=== PATIENT | female | born 1990 | race Caucasian/White ===

== ENCOUNTER → 2017-03-17 | Outpatient (CLI) | payer OTHER ==
[~2017-03-17] MED LIST: CLON1TAB3 PO; ETON1IMP2 INTRAD; FLUO10CA24 PO; OMEP20CA9 PO; PRLSR20 PO; QUET-205 PO; TPM/50 PO; VNTHFA/IN INH
[2017-03-17 13:33] LABS: BASO % 0.4 %; BASO ABS # 0.03 K/uL (0-0.2); COMPLETE YES; EOS % 3.3 %; IG% 0.1 %; LYMPH % 22.5 %; LYMPH ABS # 1.76 K/uL (1.2-3.4); MEAN CELL VOLUME 90.9 fL (80-100); MEAN CORPUSCULAR HEMOGLOBIN 30.4 pg (25-34); MEAN CORPUSCULAR HGB CONC 33.4 g/dl (32-36); MEAN PLATELET VOLUME 10.4 fL (7.4-10.4); NEUT % 62.7 %; PLATELET COUNT 383 K/uL (130-400); RED BLOOD COUNT 4.84 M/uL (4.2-5.4); WHITE BLOOD COUNT 7.83 K/uL (4.8-10.8)
[2017-03-17 14:10] LABS: ALT/SGPT 30 U/L (12-78); BLOOD UREA NITROGEN 6 mg/dl (7-18); BUN/CREATININE RATIO 9.8 (10-20); CARBON DIOXIDE 26 mmol/L (21-32); CHLORIDE 106 mmol/L (98-107); CREATININE 0.57 mg/dl (0.60-1.20); GLUCOSE 95 mg/dl (70-99); POTASSIUM 3.5 mmol/L (3.5-5.1); SODIUM 140 mmol/L (136-145)
[2017-03-17 14:14] LABS: CALCIUM 9.7 mg/dl (8.5-10.1)
[2017-03-17 14:20] LABS: ALKALINE PHOSPHATASE 118 U/L (45-117); AST/SGOT 23 U/L (15-37)
[2017-03-17 15:07] LABS: URINE APPEARANCE CLEAR (CLEAR); URINE BILIRUBIN NEG (NEG); URINE COLOR YELLOW; URINE EPITHELIAL CELL AUTO >30 /lpf (0-5); URINE NITRITE NEG (NEG); URINE SPECIFIC GRAVITY 1.018 (1.000-1.030); UROBILINOGEN NEG (NEG)
[2017-03-17 15:08] LABS: MANUAL MICROSCOPIC REQUIRED? NO; REVIEW REQ? NO
== END | disposition home or self-care (01) ==
LOC: C.LABBC 10:01
PROVIDERS: ATTEND Physician Assistant Medical
DX: N91.2 Amenorrhea, unspecified (principal); K21.9 Gastro-esophageal reflux disease without esophagitis; R11.2 Nausea with vomiting, unspecified; R32 Unspecified urinary incontinence; R55 Syncope and collapse

== ENCOUNTER → 2017-03-25 | Outpatient (CLI) | payer OTHER ==
[2017-03-25 14:09] LABS: URINE APPEARANCE CLOUDY (CLEAR); URINE BILIRUBIN NEG (NEG); URINE COLOR DK YELLOW; URINE EPITHELIAL CELL AUTO >30 /lpf (0-5); URINE NITRITE NEG (NEG); URINE SPECIFIC GRAVITY 1.031 (1.000-1.030); UROBILINOGEN NEG (NEG)
[2017-03-25 14:19] LABS: MANUAL MICROSCOPIC REQUIRED? NO; REVIEW REQ? YES
[2017-03-25 14:56] LABS: URINE MUCUS PRESENT (NONE PRSENT)
== END | disposition home or self-care (01) ==
LOC: C.LABBC 10:50
PROVIDERS: ATTEND Physician Assistant Medical
DX: R10.9 Unspecified abdominal pain (principal); R32 Unspecified urinary incontinence

== ENCOUNTER → 2017-03-31 | Outpatient (CLI) | payer OTHER ==
--- NOTE | 2017-04-01 12:59 | EEG Procedure Note ---
EEG Procedure Note Date of Service March 31, 2017. Start / End Times Start Time: 1:15 PM End Time: 1:36 PM Referring Physician PAMELLA Lai History This is a 26-year-old female with syncope. EEG for further evaluation of possible seizure etiology. Home Medication List Scheduled Etonogestrel (Nexplanon), 68 MG INTRAD CONTINOUS Omeprazole (Prilosec), 20 MG PO QAM Quetiapine Fumarate (Seroquel), 200 MG PO HS Description This is a 21 electrode EEG with a single channel dedicated to limited EKG. The electrodes were placed in accordance with the International 10-20 system. There was noted to be intermittent 01 and C4 artifact that was sometimes rhythmic and frequent movement artifact during the recording of this EEG. At the start of the recording the patient was in an awake state. Background was well organized and composed of symmetric mixed alpha and excess beta frequencies. There was a symmetric well-formed moderate amplitude 10 Hz posterior dominant rhythm that was reactive to eye opening and closure. Patient could not perform hyperventilation. Intermittent photic stimulation at various frequencies produced no abnormalities. There was no state changes or sleep transients. Interpretation This is a normal awake only routine EEG. There was no electrographic seizures or epileptiform discharges. Clinical Correlation A normal EEG does not rule out epilepsy if there is a strong clinical suspicion. Excess beta frequencies in the background can be seen with the use of certain medications.
== END | disposition home or self-care (01) ==
LOC: C.NEUR 13:05
PROVIDERS: ATTEND Physician Assistant Medical
DX: K21.9 Gastro-esophageal reflux disease without esophagitis (principal); N91.2 Amenorrhea, unspecified; R11.2 Nausea with vomiting, unspecified; R55 Syncope and collapse; R32 Unspecified urinary incontinence

== ENCOUNTER → 2017-04-11 | Outpatient (CLI) | payer OTHER ==
[2017-04-11 17:00] LABS: BASO % 0.2 %; BASO ABS # 0.02 K/uL (0-0.2); COMPLETE YES; EOS % 1.2 %; HEMATOCRIT 43.4 % (37-47); IG% 0.1 %; LYMPH % 35.6 %; LYMPH ABS # 3.42 K/uL (1.2-3.4); MEAN CORPUSCULAR HEMOGLOBIN 30.2 pg (25-34); MEAN CORPUSCULAR HGB CONC 33.2 g/dl (32-36); MEAN PLATELET VOLUME 10.8 fL (7.4-10.4); MONO % 7.2 %; NEUT % 55.7 %; PLATELET COUNT 357 K/uL (130-400); RED BLOOD COUNT 4.77 M/uL (4.2-5.4); WHITE BLOOD COUNT 9.61 K/uL (4.8-10.8)
[2017-04-11 17:05] LABS: PREG INTERNAL NEGATIVE QC NEG CLEAR BACKGROUND; PREG INTERNAL POSITIVE QC POS CONTROL LINE; URINE APPEARANCE TURBID (CLEAR); URINE BILIRUBIN NEG (NEG); URINE COLOR YELLOW; URINE EPITHELIAL CELL AUTO >30 /lpf (0-5); URINE NITRITE NEG (NEG); URINE SPECIFIC GRAVITY 1.021 (1.000-1.030); UROBILINOGEN NEG (NEG)
[2017-04-11 17:07] LABS: MANUAL MICROSCOPIC REQUIRED? NO; REVIEW REQ? NO
[2017-04-11 17:21] LABS: ALT/SGPT 19 U/L (12-78); AST/SGOT 11 U/L (15-37); BLOOD UREA NITROGEN 8 mg/dl (7-18); BUN/CREATININE RATIO 13.9 (10-20); CALCIUM 9.2 mg/dl (8.5-10.1); CARBON DIOXIDE 26 mmol/L (21-32); CHLORIDE 109 mmol/L (98-107); CREATININE 0.61 mg/dl (0.60-1.20); GLUCOSE 79 mg/dl (70-99); POTASSIUM 3.6 mmol/L (3.5-5.1); SODIUM 142 mmol/L (136-145)
[2017-04-11 17:34] LABS: BENZODIAZEPINE, URINE NEG (NEG); COCAINE,URINE NEG (NEG); PHENCYCLIDINE, URINE NEG (NEG)
[2017-04-11 17:35] LABS: ALKALINE PHOSPHATASE 104 U/L (45-117)
== END | disposition home or self-care (01) ==
LOC: C.LABBC 14:20
PROVIDERS: ATTEND Psychiatry & Neurology Psychiatry
DX: F31.9 Bipolar disorder, unspecified (principal)

== ENCOUNTER → 2017-04-22 | Outpatient (CLI) | payer OTHER ==
--- NOTE | 2017-04-22 14:27 | DIAGNOSTIC IMAGING REPORT ---
CHEST 2 VIEWS ROUTINE CLINICAL HISTORY: R05 Cough" black sputum" x>5 [id number] dyspnea COMPARISON STUDY: No previous studies for comparison. FINDINGS: The bones soft tissues and hemidiaphragms are normal. The cardiomediastinal silhouette is normal. The lungs are clear. The pulmonary vasculature is normal. IMPRESSION: Negative chest. Electronically signed by: Rohit Almazan M.D. 04/22/2017 2:26 PM Dictated Date/Time: 04/22/2017 2:25 PM
== END | disposition home or self-care (01) ==
LOC: C.RAD1850 13:44
PROVIDERS: ATTEND Physician Assistant Medical
DX: R05 Cough (principal)

== ENCOUNTER → 2017-04-29 | Outpatient (CLI) | payer OTHER | END | disposition home or self-care (01) | LOC: C.LAB1850 09:21 | PROVIDERS: ATTEND Physician Assistant Medical | DX: R05 Cough (principal) ==

== ENCOUNTER → 2017-05-12 | Outpatient (CLI) | payer OTHER ==
--- NOTE | 2017-05-12 09:10 | DIAGNOSTIC IMAGING REPORT ---
GI SERIES W/AIR ROUTINE CLINICAL HISTORY: ABDOMINAL CAI, GERD, HERNIA, NAUSEA VOMITING COMPARISON STUDY: None. FLUOROSCOPY TIME: 1.7 minutes. 22 images submitted.. FINDINGS: The patient swallowed barium without difficulty. The esophagus is normal in course, caliber, and motility. No gastroesophageal reflux. No gastric ulcerations. The duodenal bulb and duodenal C sweep are within normal limits. Prior cholecystectomy. There appear to be a tiny hiatus hernia. IMPRESSION: 1. Tiny hiatus hernia. 2. No gastroesophageal reflux. Electronically signed by: Brain Vargas M.D. 05/12/2017 9:09 AM Dictated Date/Time: 05/12/2017 9:04 AM
== END | disposition home or self-care (01) ==
LOC: C.RAD 08:18
PROVIDERS: ATTEND Registered Nurse
DX: K21.9 Gastro-esophageal reflux disease without esophagitis (principal); K44.9 Diaphragmatic hernia without obstruction or gangrene; R11.2 Nausea with vomiting, unspecified; R10.9 Unspecified abdominal pain

== ENCOUNTER → 2017-05-30 | Outpatient (CLI) | payer OTHER | END | disposition home or self-care (01) | LOC: C.LABSPEC 17:08 | PROVIDERS: ATTEND Nurse Practitioner Adult Health | DX: N94.10 Unspecified dyspareunia (principal) ==

== ENCOUNTER 2017-06-29 14:49 | Inpatient (IN) | payer OTHER ==
[~2017-06-29] VITALS: Ht 154.9 cm; Wt 65.8 kg
[~2017-06-29 14:49] MED LIST changes: -CLON1TAB3 PO; -FLUO10CA24 PO; -OMEP20CA9 PO; -TPM/50 PO; -VNTHFA/IN INH
[2017-06-29] MEDS ORDERED: OMEP20CA9 PO (15:24)
[2017-06-29] MEDS ORDERED: CLON1TAB3 PO (15:24)
[2017-06-29] MEDS ORDERED: TPM/50 PO (15:24)
[2017-06-29] MEDS ORDERED: FLUO10CA24 PO (15:24)
[2017-06-29] MEDS ORDERED: VNTHFA/IN INH (15:24)
[2017-06-29] MEDS ORDERED: SODIUM CHLORIDE 0.9% 1000ML 1,000 ML IV STA ×2 (15:31)
[2017-06-29] MEDS ORDERED: ALBUT/IPRATROP 3MG/0.5MG NEB 3 ML VIAL INH STA (15:31)
[2017-06-29 16:06] LABS: URINE APPEARANCE TURBID (CLEAR); URINE COLOR DK YELLOW; URINE EPITHELIAL CELL AUTO >30 /lpf (0-5); URINE NITRITE NEG (NEG); URINE SPECIFIC GRAVITY 1.033 (1.000-1.030); UROBILINOGEN NEG (NEG)
[2017-06-29 16:14] LABS: MANUAL MICROSCOPIC REQUIRED? NO; REVIEW REQ? YES
[2017-06-29 16:15] LABS: URINE BILIRUBIN NEG (NEG)
--- NOTE | 2017-06-29 16:34 | DIAGNOSTIC IMAGING REPORT ---
CHEST 2 VIEWS ROUTINE CLINICAL HISTORY: SHORTNESS OF BREATH dyspnea COMPARISON STUDY: 04/22/2017 FINDINGS: The bones soft tissues and hemidiaphragms are normal. The cardiomediastinal silhouette is normal. The lungs are clear. The pulmonary vasculature is normal. IMPRESSION: Negative chest. The above report was generated using voice recognition software. It may contain grammatical, syntax or spelling errors. Electronically signed by: Rohit Almazan M.D. 06/29/2017 4:33 PM Dictated Date/Time: 06/29/2017 4:33 PM
[2017-06-29 16:35] LABS: BENZODIAZEPINE, URINE NEG (NEG); COCAINE,URINE NEG (NEG); PHENCYCLIDINE, URINE NEG (NEG)
[2017-06-29 16:45] LABS: BASO % 0.2 %; BASO ABS # 0.02 K/uL (0-0.2); COMPLETE YES; EOS % 0.6 %; HEMATOCRIT 44.9 % (37-47); IG% 0.2 %; LYMPH ABS # 3.87 K/uL (1.2-3.4); MEAN CELL VOLUME 87.9 fL (80-100); MEAN CORPUSCULAR HEMOGLOBIN 30.5 pg (25-34); MEAN CORPUSCULAR HGB CONC 34.7 g/dl (32-36); MONO % 8.8 %; NEUT % 46.2 %; PLATELET COUNT 321 K/uL (130-400); RED BLOOD COUNT 5.11 M/uL (4.2-5.4); WHITE BLOOD COUNT 8.79 K/uL (4.8-10.8)
[2017-06-29 16:47] LABS: URINE MUCUS PRESENT (NONE PRSENT)
[2017-06-29 16:54] LABS: PARTIAL THROMBOPLASTIN RATIO 1.1; PROTHROMBIN TIME (PATIENT) 11.1 SECONDS (9.0-12.0)
[2017-06-29 17:02] LABS: BLOOD UREA NITROGEN 10 mg/dl (7-18); BUN/CREATININE RATIO 15.6 (10-20); CALCIUM 9.4 mg/dl (8.5-10.1); CARBON DIOXIDE 19 mmol/L (21-32); CHLORIDE 109 mmol/L (98-107); CREATININE 0.61 mg/dl (0.60-1.20); GLUCOSE 79 mg/dl (70-99); MAGNESIUM 1.6 mg/dl (1.8-2.4); POTASSIUM 2.6 mmol/L (3.5-5.1); SODIUM 140 mmol/L (136-145)
[2017-06-29] MEDS ORDERED: POTASSIUM CHLORIDE 10 MEQ TABCR PO STA (17:07)
[2017-06-29 17:13] LABS: ALKALINE PHOSPHATASE 102 U/L (45-117); ALT/SGPT 23 U/L (12-78); AST/SGOT 15 U/L (15-37)
[2017-06-29] MEDS ORDERED: MAGNESIUM OXIDE 400 MG TAB PO ONE (17:30)
--- NOTE | 2017-06-29 18:39 | EMERGENCY ROOM VISIT NOTE ---
History First contact with patient: 15:11 Chief Complaint: SHORTNESS OF BREATH Stated Complaint: SOB Nursing Triage Summary: Pt reports sob and chest pain since last night. 40 lbs weight loss since April. "I've been passing out randomly. 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 There is something really wrong." History of Present Illness Patient is a 26-year-old white female with past medical history significant for "cystic lung disease" who presents to the emergency department for evaluation of chest pain and shortness of breath. She reports that she was diagnosed with cystic lung disease several years ago. She is on albuterol and Symbicort, and is followed by pulmonology. She has had progressively worsening shortness of breath over the last several months. She states that she becomes so short of breath that she cannot perform even simple routine activities any longer. She has a cough that is productive of sputum. She relates yesterday she developed midsternal chest tightness/pressure, and fell more short of breath than usual. She used her albuterol inhaler 3 times today without relief, tried taking a cold shower and sitting in an air conditioned room. She called her community relations representative who recommended that she come to the emergency department for further care and evaluation. She reports feeling some palpitations with her shortness of breath. She denies any fever. She is not on any antibiotics or oral steroids recently. She also reports she is being followed by neurology and GI for spinal other issues that have been present again for the last several months. She has had problems with passing out and insomnia and is seen at neurology. She has been prescribed multiple different sleep medications without relief. She has had nausea, vomiting, and anorexia, and has been seen by GI. She reports she has lost 40 pounds in the last 3-4 months, unintentionally. She has chronic urinary incontinence. She denies frequency, urgency or dysuria. She reports decreased bowel movements secondary to decreased oral intake, no diarrhea, melena or hematochezia. She does report easy bruising in her legs. She denies any calf or leg pain or swelling. She reports she is scheduled for a Holter monitor and on July 06. Review of Systems Review of systems as per HPI. All other systems reviewed were negative. 10 systems reviewed. Past Medical/Surgical History Medical Problems: (1) Abdominal pain (2) Altered mental status (3) Anxiety State Nos (4) Bladder infection (5) C. difficile colitis (6) Cholelithiasis (7) Cystic-bullous disease of lung (8) Dehydration (9) Dental abscess (10) Depressive Disorder Nec (11) Diarrhea (12) Dysfunctional uterine bleeding (13) Dysuria (14) Epigastric pain (15) Esophageal Reflux (16) Headache (17) Herpes genitalis (18) Hypokalemia (19) Hypothyroidism Nos (20) IBS (irritable bowel syndrome) (21) Intractable abdominal pain (22) LLQ abdominal pain (23) LLQ abdominal pain (24) Nausea & vomiting (25) Nausea and vomiting (26) Nausea vomiting and diarrhea (27) Nausea, vomiting and diarrhea (28) Pneumonia (29) Possible exposure to STD (30) Shortness of breath (31) Sinusitis (32) Sinusitis (33) Substance abuse (34) Syncope (35) UTI (urinary tract infection) (36) Viral URI (37) Vomiting Surgical Problems: (1) Cholecystectomy (2) H/O dilation and curettage Electronic medical records are reviewed and summarized as above/below. See Problem List. Family History Cancer Diabetes mellitus Heart disease Social History Smoking Status: Never Smoker Alcohol Use: none Drug Use: other Marital Status: single Housing Status: lives alone Occupation Status: unemployed Current/Historical Medications Scheduled Clonazepam (Klonopin), 1 MG PO TID Fluoxetine HCl (Fluoxetine HCl), 10 MG PO DAILY Omeprazole (Prilosec), 20 MG PO AMPM Topiramate (Topamax), 50 MG PO BID Scheduled PRN Albuterol Hfa (Ventolin Hfa), 2 PUFF INH Q4H PRN for Shortness of Breath Physical Exam Vital Signs Date Time Temp Pulse Resp B/P (MAP) Pulse Ox O2 Delivery O2 Flow Rate FiO2 06/29/17 16:59 91 Room Air 06/29/17 16:48 06/29/17 16:47 84 18 103/68 98 Room Air 77 106/71 82 105/86 06/29/17 16:10 86 17 100 Room Air 06/29/17 16:09 76 06/29/17 16:03 81 37 108/56 100 Room Air 06/29/17 14:53 36.5 99 18 124/89 99 Room Air Physical Exam CONSTITUTIONAL: Patient is a well-appearing 26-year-old white female who is awake and alert and in no acute distress. Oxygen saturation is 100% on room air , respiratory rate 18 and unlabored, heart rate is 79 beats per minute. [place] She is able to speak in full sentences without difficulty. EYES: Pupils equal, round, reactive to light and accommodation. EOMs intact without nystagmus. Sclera are anicteric. ENT: Tympanic membranes intact, with normal landmarks. External canals are clear. Oral and nasopharynx are clear. Mucous membranes are moist, no lesions , tongue and gums appear normal. NECK: No bruits auscultated. Supple without lymphadenopathy. No thyromegaly. No meningeal signs. Full active range of motion without discomfort. No stridor. CARDIOVASCULAR: Regular rate and rhythm, with normal S1 and S2, no murmur or gallop or rub is heard. No carotid bruits auscultated. No JVD. Peripheral pulses easy to palpable. RESPIRATORY: Breath sounds equal and clear to auscultation without wheezes, rales, or rhonchi heard. Full and equal chest expansion without accessory muscle use or retractions. GI: Bowel sounds are present. Abdomen is soft, nontender, nondistended. No organomegaly. No pulsatile masses. No guarding or rebound. MUSCULOSKELETAL: Full range of motion of extremities x 4 with good strength. No cyanosis, edema, joint tenderness or swelling. No deformity. INTEGUMENTARY: No lesions or rash, normal skin turgor. NEUROLOGICAL: Alert, oriented, and cooperative. Cranial nerves, sensation and strength grossly intact. Pupils round, equal, and react to light, EOMs are full. LYMPH: No lymphadenopathy. Medical Decision & Procedures ER Provider Diagnostic Interpretation: CHEST 2 VIEWS ROUTINE CLINICAL HISTORY: SHORTNESS OF BREATH dyspnea COMPARISON STUDY: 04/22/2017 FINDINGS: The bones soft tissues and hemidiaphragms are normal. The cardiomediastinal silhouette is normal. The lungs are clear. The pulmonary vasculature is normal. IMPRESSION: Negative chest. Laboratory Results 06/29/17 16:34 Red Blood Count 5.11, Mean Corpuscular Volume 87.9, Mean Corpuscular Hemoglobin 30.5, Mean Corpuscular Hemoglobin Concent 34.7, Mean Platelet Volume 10.0, Neutrophils (%) (Auto) 46.2, Lymphocytes (%) (Auto) 44.0, Monocytes (%) (Auto) 8.8, Eosinophils (%) (Auto) 0.6, Basophils (%) (Auto) 0.2, Neutrophils # (Auto) 4.06, Lymphocytes # (Auto) 3.87, Monocytes # (Auto) 0.77, Eosinophils # (Auto) 0.05, Basophils # (Auto) 0.02 06/29/17 16:34 Test 06/29/17 15:45 06/29/17 16:34 06/29/17 16:42 Urine Color DK YELLOW Urine Appearance TURBID (CLEAR) Urine pH 6.0 (4.5-7.5) Urine Specific Ada 1.033 (1.000-1.030) Urine Protein 1+ (NEG) Urine Glucose (UA) NEG (NEG) Urine Ketones 4+ (NEG) Urine Occult Blood NEG (NEG) Urine Nitrite NEG (NEG) Urine Bilirubin NEG (NEG) Urine Urobilinogen NEG (NEG) Urine Leukocyte Esterase TRACE (NEG) Urine WBC (Auto) 5-10 /hpf (0-5) Urine RBC (Auto) 0-4 /hpf (0-4) Urine Hyaline Casts (Auto) 0 /lpf (0-5) Urine Epithelial Cells (Auto) >30 /lpf (0-5) Urine Bacteria (Auto) 2+ (NEG) Urine Renal Epithelial Cells /lpf (0-5) Urine Crystals CALCIUM OXALATE (NONE Urine Pathogenic Casts /lpf (0) Urine Mucus PRESENT (NONE PRSENT) Urine Test NEG (NEG) Urine Opiates Screen NEG (NEG) Urine Methadone, Qualitative NEG (NEG) Urine Barbiturates NEG (NEG) Urine Phencyclidine (PCP) Level NEG (NEG) Ur Amphetamine/Methamphetamine NEG (NEG) MDMA (Ecstasy) Screen NEG (NEG) Urine Benzodiazepines Screen NEG (NEG) Urine Cocaine Metabolite NEG (NEG) Urine Marijuana (THC) NEG (NEG) White Blood Count 8.79 K/uL (4.8-10.8) Red Blood Count 5.11 M/uL (4.2-5.4) Hemoglobin 15.6 g/dL (12.0-16.0) Hematocrit 44.9 % (37-47) Mean Corpuscular Volume 87.9 fL (80-100) Mean Corpuscular Hemoglobin 30.5 pg (25-34) Mean Corpuscular Hemoglobin Concent 34.7 g/dl (32-36) Platelet Count 321 K/uL (130-400) Mean Platelet Volume 10.0 fL (7.4-10.4) Neutrophils (%) (Auto) 46.2 % Lymphocytes (%) (Auto) 44.0 % Monocytes (%) (Auto) 8.8 % Eosinophils (%) (Auto) 0.6 % Basophils (%) (Auto) 0.2 % Neutrophils # (Auto) 4.06 K/uL (1.4-6.5) Lymphocytes # (Auto) 3.87 K/uL (1.2-3.4) Monocytes # (Auto) 0.77 K/uL (0.11-0.59) Eosinophils # (Auto) 0.05 K/uL (0-0.5) Basophils # (Auto) 0.02 K/uL (0-0.2) RDW Standard Deviation 47.3 fL (36.4-46.3) RDW Coefficient of Variation 14.7 % (11.5-14.5) Immature Granulocyte % (Auto) 0.2 % Immature Granulocyte # (Auto) 0.02 K/uL (0.00-0.02) Prothrombin Time 11.1 SECONDS (9.0-12.0) Prothromb Time International Ratio 1.0 (0.9-1.1) Activated Partial Thromboplast Time 29.2 SECONDS (21.0-31.0) Partial Thromboplastin Ratio 1.1 Anion Gap 12.0 mmol/L (3-11) Est Creatinine Clear Calc Drug Dose 118.0 ml/min Estimated GFR () 143.0 Estimated GFR (Non- 123.4 BUN/Creatinine Ratio 15.6 (10-20) Calcium Level 9.4 mg/dl (8.5-10.1) Magnesium Level 1.6 mg/dl (1.8-2.4) Total Bilirubin 0.8 mg/dl (0.2-1) Aspartate Amino Transf (AST/SGOT) 15 U/L (15-37) Alanine Aminotransferase (ALT/SGPT) 23 U/L (12-78) Alkaline Phosphatase 102 U/L (45-117) Total Creatine Kinase 40 U/L (26-192) Creatine Kinase MB < 0.5 ng/ml (0.5-3.6) Creatine Kinase MB Ratio (0-3.0) Troponin I < 0.015 ng/ml (0-0.045) Total Protein 8.4 gm/dl (6.4-8.2) Albumin 4.3 gm/dl (3.4-5.0) Globulin 4.1 gm/dl (2.5-4.0) Albumin/Globulin Ratio 1.0 (0.9-2) Lipase 147 U/L (73-393) Thyroid Stimulating Hormone (TSH) 3.110 uIu/ml (0.300-4.500) Bedside D-Dimer 245 ng/mlFEU (0-450) Medications Administered Medications (Trade) Dose Ordered Sig/Melissa Route Start Time Stop Time Status Last Admin Dose Admin Sodium Chloride 1,000 ml @ 999 mls/hr Q1H1M STAT IV 06/29/17 15:31 06/29/17 16:31 DC 06/29/17 16:50 999 MLS/HR Sodium Chloride 1,000 ml @ 250 mls/hr Q4H STAT IV 06/29/17 15:31 06/29/17 19:30 DC 06/29/17 16:50 250 MLS/HR Albuterol/ Ipratropium (Duoneb) 3 ml NOW STAT INH 06/29/17 15:31 06/29/17 15:34 DC 06/29/17 15:51 3 ML Potassium Chloride (Klor-Con M10) 40 meq NOW STAT PO 06/29/17 17:07 06/29/17 17:08 DC 06/29/17 17:13 40 MEQ Magnesium Oxide (Mag-Ox Tab) 400 mg NOW ONCE PO 06/29/17 17:30 06/29/17 17:31 DC 06/29/17 17:30 400 MG ECG Indication: chest pain, SOB/dyspnea Rate (beats per minute): 78 Rhythm: normal sinus Findings: no acute ischemic change, no ectopy Change: no significant change ED Course The patient was seen and evaluated as above. Her old records were reviewed, including her recent outpatient laboratory and diagnostic imaging studies. She was placed on a electronic device monitor, IV access was obtained and laboratory studies were collected. She was given a DuoNeb treatment, during which she complained of cramping and spasms in her hands and numbness in her legs. Orthostatic vital signs were normal. She was hydrated with normal saline solution. She was ambulated, and pulse ox was assessed and was 91% with ambulation. CBC with differential, coags, magnesium, CMP, lipase, CK, CK-MB, troponin, TSH and point- of-care d-dimer were collected. Chest x-ray was obtained and was unremarkable. Laboratory studies noted a normal white count at 8700, no left shift or bandemia. H&H 15.6 and 44.9, platelets 321,000. Coags are within normal limits. D-dimer was not elevated, therefore further workup for PE was not pursued. Patient's electrolytes revealed a sodium of 140, she is hypokalemic with potassium of 2.6, chloride 109, carbon dioxide 19, BUN 10 and creatinine 0.61. Magnesium also slightly low at 1.6. Liver functions are not elevated. Cardiac enzymes are negative. TSH is indicative of a euthyroid state. Urinalysis notes 4+ ketones trace esterase, 5-10 WBCs, 2+ bacteria, calcium oxalate crystals and greater than 30 epithelial cells. Urine culture was ordered and is pending. Patient refused IV potassium was given 40 mEq orally. She was given magnesium oxide 400 mg orally as well. She was given a soft diet. Patient was reviewed with the manager product management. Given her hypokalemia, in addition to her multiple other medical problems including her shortness of breath, syncope, anorexia and weight loss with nausea and vomiting, it was felt that she would benefit from admission/observation in the hospital. The patient was reviewed with the [facility] Hospitalist for further care and evaluation. Differential diagnoses entertained included arrhythmia, acute coronary syndrome , orthostasis, dehydration, electrolyte abnormalities, anemia, hypoglycemia, acute myocardial infarction, myocarditis, pericarditis, pericardial effusions/ tamponade, pulmonary embolism, pneumonia, pneumothorax, cardiomyopathy, congestive heart failure, anemia , COPD/asthma exacerbation, musculoskeletal, anxiety, costochondritis, among others. Medical Decision See Emergency Department course. Medication Reconcilliation Current Medication List: was personally reviewed by me Blood Pressure Screening Patient's blood pressure: Normal blood pressure Blood pressure disposition: Did not require urgent referral Impression Primary Impression: Hypokalemia Additional Impression: Shortness of breath Departure Information Dispostion Being Evaluated By Hospitalist Referrals No Doctor, Assigned (PCP) Patient Instructions My [facility] Problem Qualifiers
[2017-06-29] MEDS ORDERED: MAGNESIUM SULFATE 1GM / D5W 1 GM in PREMIXED IN D5W 100 ML IV STA (18:43)
[2017-06-29] MEDS ORDERED: ACETAMINOPHEN 325 MG TAB PO PRN (18:45)
[2017-06-29] MEDS ORDERED: ALBUTEROL 0.5% NEB SOLN 2.5 MG/0.5 ML VIAL INH PRN (18:45)
[2017-06-29] MEDS ORDERED: ALBUTEROL HFA 8 GM INHALER INH PRN (18:45)
[2017-06-29] MEDS ORDERED: ZOLPIDEM TARTRATE 5 MG TAB PO PRN (18:45)
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
[2017-06-29] MEDS: NSS + 20MEQ KCL 1000ML 1,000 ML IV SCH (21:01)
[2017-06-29] MEDS: TOPIRAMATE 25 MG TAB PO SCH (21:01)
[2017-06-29] MEDS: CLONAZEPAM 1 MG TAB PO SCH (21:02)
[2017-06-29 22:16] VITALS: BP 100/63; PULSE 93; TEMP 36.7; O2SAT 100; Ht 154.9 cm; Wt 65.8 kg
[2017-06-29 23:59] VITALS: BP 107/68; PULSE 93; TEMP 37; O2SAT 99
[2017-06-30 04:00] VITALS: BP 107/64; PULSE 77; TEMP 36.9; O2SAT 99
[2017-06-30] MEDS: NSS + 20MEQ KCL 1000ML 1,000 ML IV SCH ×2 (04:47→11:20)
[2017-06-30 07:30] VITALS: O2SAT 100
[2017-06-30] MEDS: TOPIRAMATE 25 MG TAB PO SCH (07:39)
[2017-06-30] MEDS: CLONAZEPAM 1 MG TAB PO SCH ×2 (07:41→13:56)
[2017-06-30 08:00] VITALS: BP 112/76; PULSE 92; TEMP 36.7; O2SAT 100
[2017-06-30] MEDS ORDERED: FLUOXETINE HCL 10 MG CAP PO SCH (09:00)
[2017-06-30] MEDS ORDERED: PANTOprazole SOD 40 MG TAB PO SCH (09:00)
[2017-06-30 09:18] LABS: BLOOD UREA NITROGEN 4 mg/dl (7-18); BUN/CREATININE RATIO 10.5 (10-20); CALCIUM 8.2 mg/dl (8.5-10.1); CARBON DIOXIDE 18 mmol/L (21-32); CHLORIDE 116 mmol/L (98-107); CREATININE 0.39 mg/dl (0.60-1.20); GLUCOSE 91 mg/dl (70-99); MAGNESIUM 1.9 mg/dl (1.8-2.4); POTASSIUM 3.6 mmol/L (3.5-5.1); SODIUM 143 mmol/L (136-145)
[2017-06-30 12:00] VITALS: O2SAT 100
[2017-06-30] MEDS ORDERED: TEMAZEPAM 7.5 MG CAP PO PRN (15:00)
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
[2017-06-30] MEDS ORDERED: NURSING VERBAL MED ORDER ONE ×2 (15:30→15:45)
[2017-06-30] MEDS ORDERED: ONDANSETRON INJ 2 MG/ML 2 ML VIAL IV STA (15:35)
[2017-06-30] MEDS ORDERED: ONDANSETRON INJ 2 MG/ML 2 ML VIAL IV PRN (15:45)
[2017-06-30] MEDS ORDERED: ALBUTEROL HFA 8 GM INHALER INH PRN (15:45)
[2017-06-30] MEDS ORDERED: BUDESONIDE/FORMOTEROL FUMARATE 80/4.5 60 PUFFS/INHALER INH SCH (16:00)
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
--- NOTE | 2017-07-05 08:04 | Psychiatric Consultation ---
Psychiatric Consultation Date of Service: Jul 05, 2017. patient eloped from hospital before liaison could initiate first contact, hence patient was unable to be seen by psychiatric provider.
== END 2017-06-30 16:10 | disposition left against medical advice (07) | DRG 204 ==
LOC: C.EDB 14:51 → C.2T 18:38 → ENRESERV 19:12 → C.MSICU 19:49
PROVIDERS: ADMIT Hospitalist; ATTEND Hospitalist
DX: R06.02 Shortness of breath (principal); E46 Unspecified protein-calorie malnutrition; J98.4 Other disorders of lung; J43.9 Emphysema, unspecified; E87.6 Hypokalemia; K58.9 Irritable bowel syndrome, unspecified; R32 Unspecified urinary incontinence; E83.42 Hypomagnesemia; F43.10 Post-traumatic stress disorder, unspecified; E03.9 Hypothyroidism, unspecified; F32.9 Major depressive disorder, single episode, unspecified; R11.2 Nausea with vomiting, unspecified

== ENCOUNTER → 2017-07-06 | Outpatient (CLI) | payer OTHER ==
[~2017-07-06] MED LIST changes: +CLON1TAB3 PO; -ETON1IMP2 INTRAD; +FLUO10CA24 PO; +OMEP20CA9 PO; -PRLSR20 PO; -QUET-205 PO; +TPM/50 PO; +VNTHFA/IN INH
[2017-07-06 12:18] LABS: BASO % 0.4 %; BASO ABS # 0.02 K/uL (0-0.2); COMPLETE YES; EOS % 1.6 %; HEMATOCRIT 39.3 % (37-47); LYMPH % 39.1 %; LYMPH ABS # 2.22 K/uL (1.2-3.4); MEAN CELL VOLUME 89.3 fL (80-100); MEAN CORPUSCULAR HEMOGLOBIN 30.9 pg (25-34); MEAN CORPUSCULAR HGB CONC 34.6 g/dl (32-36); MEAN PLATELET VOLUME 11.2 fL (7.4-10.4); MONO % 11.8 %; NEUT % 47.1 %; PLATELET COUNT 305 K/uL (130-400); WHITE BLOOD COUNT 5.68 K/uL (4.8-10.8)
[2017-07-06 12:25] LABS: ESTIMATED AVERAGE GLUCOSE 108 mg/dl; HA1C FLAG Normal (Normal)
[2017-07-06 12:37] LABS: ALT/SGPT 27 U/L (12-78); AST/SGOT 12 U/L (15-37); BLOOD UREA NITROGEN 11 mg/dl (7-18); CALCIUM 8.8 mg/dl (8.5-10.1); CARBON DIOXIDE 20 mmol/L (21-32); CHLORIDE 110 mmol/L (98-107); CREATININE 0.44 mg/dl (0.60-1.20); GLUCOSE 84 mg/dl (70-99); POTASSIUM 2.9 mmol/L (3.5-5.1); SODIUM 141 mmol/L (136-145)
[2017-07-06 12:48] LABS: ALB/GLOB RATIO 1.2 (0.9-2); ALKALINE PHOSPHATASE 89 U/L (45-117)
[2017-07-06 13:53] LABS: LYME DISEASE AB IGG NEG (NEG); LYME DISEASE AB IGM NEG (NEG)
[2017-07-10 18:30] LABS: COLLECTION SAMPLE Venous; LEAD BLOOD <1 mcg/dL (<5); METHYLMALONIC ACID 52 NMOL/L (87-318); VIT B1 PLASMA(THIAMIN)**90353 <7 nmol/L (8-30); VITAMIN B6** TC 926 71.5 ng/mL (2.1-21.7)
--- NOTE | 2017-07-12 10:50 | CODING QUERY MEDICAL NECESSITY ---
CQSUPPORTING DIAGNOSIS NEEDED A supporting diagnosis is required for the test/procedure performed on this patient in order for us to be reimbursed by the patient's insurance. Please provide a supporting diagnosis for the following test/procedure listed below next to the test name along with your signature. *If there is no additional diagnosis for this patient that would support the following test/procedure please document that below next to the test/procedure. Test(s)/Procedure(s) that require a supporting diagnosis: DOS 07/06/17 GLYCATED HEMOGLOBIN TEST TEST ORDERED BY PAMELLA AGOSTO Provider Signature: Date: Thank you Maryam Kingsley Health Information Management Once completed, please kindly fax back to [phone] For questions please call [phone]
== END | disposition home or self-care (01) ==
LOC: C.LAB1850 09:49
PROVIDERS: ATTEND Physician Assistant
DX: R55 Syncope and collapse (principal); R20.8 Other disturbances of skin sensation

== ENCOUNTER → 2017-11-16 | Outpatient (CLI) | payer OTHER ==
[2017-11-16 17:41] LABS: BASO % 0.1 %; BASO ABS # 0.01 K/uL (0-0.2); COMPLETE YES; EOS % 1.3 %; HEMATOCRIT 40.5 % (37-47); IG% 0.1 %; LYMPH % 32.5 %; LYMPH ABS # 2.58 K/uL (1.2-3.4); MEAN CELL VOLUME 93.8 fL (80-100); MEAN CORPUSCULAR HEMOGLOBIN 31.7 pg (25-34); MEAN CORPUSCULAR HGB CONC 33.8 g/dl (32-36); MEAN PLATELET VOLUME 10.3 fL (7.4-10.4); MONO % 7.1 %; NEUT % 58.9 %; PLATELET COUNT 331 K/uL (130-400); RED BLOOD COUNT 4.32 M/uL (4.2-5.4); WHITE BLOOD COUNT 7.94 K/uL (4.8-10.8)
[2017-11-16 18:10] LABS: ALT/SGPT 17 U/L (12-78); BLOOD UREA NITROGEN 5 mg/dl (7-18); BUN/CREATININE RATIO 7.8 (10-20); CALCIUM 8.9 mg/dl (8.5-10.1); CARBON DIOXIDE 26 mmol/L (21-32); CHLORIDE 104 mmol/L (98-107); GLUCOSE 91 mg/dl (70-99); POTASSIUM 3.1 mmol/L (3.5-5.1); SODIUM 138 mmol/L (136-145)
[2017-11-16 18:22] LABS: ALB/GLOB RATIO 1.1 (0.9-2); ALKALINE PHOSPHATASE 82 U/L (45-117); AST/SGOT 14 U/L (15-37)
== END | disposition home or self-care (01) ==
LOC: C.LAB1850 16:47
PROVIDERS: ATTEND Internal Medicine
DX: J02.9 Acute pharyngitis, unspecified (principal); R53.83 Other fatigue; R51 Headache

== ENCOUNTER → 2018-02-06 | Outpatient (CLI) | payer OTHER | END | disposition home or self-care (01) | LOC: C.LABSPEC 15:59 | PROVIDERS: ATTEND Physician Assistant | DX: N94.10 Unspecified dyspareunia (principal) ==

== ENCOUNTER → 2018-02-06 | Outpatient (CLI) | payer OTHER | END | disposition home or self-care (01) | LOC: C.PAPS 12:25 | PROVIDERS: ATTEND Physician Assistant | DX: Z01.411 Encounter for gynecological examination (general) (routine) with abnormal findings (principal); R87.610 Atypical squamous cells of undetermined significance on cytologic smear of cervix (ASC-US) ==

== ENCOUNTER → 2018-02-16 | Outpatient (CLI) | payer OTHER | END | disposition home or self-care (01) | LOC: C.LAB 09:34 | PROVIDERS: ATTEND Physician Assistant | DX: Z30.9 Encounter for contraceptive management, unspecified (principal) ==